=== PATIENT | male | born 1985 | race African-American/Black ===

== ENCOUNTER 2023-11-27 08:58 | Emergency (ER) | payer SELFPAY ==
[~2023-11-27] VITALS: Ht 185.4 cm; Wt 88.5 kg
[2023-11-27 09:16] VITALS: O2SAT 100
[2023-11-27 10:25] LABS: BASOPHILS % 0.6 % (0.0-2.0); EOSINOPHILS % 1.4 % (0.0-5.0); HEMATOCRIT. 43.2 % (42.0-52.0); HEMOGLOBIN. 14.4 g/dL (14.0-18.0); LYMPHOCYTES % 37.3 % (20.0-50.0); MEAN CORPUSCULAR HEMOGLOBIN 28.7 pg (28.0-32.0); MEAN CORPUSCULAR HGB CONC 33.2 g/dL (31.0-37.0); MEAN CORPUSCULAR VOLUME 86.5 fL (80.0-94.0); MEAN PLATELET VOLUME 8.2 fl (7.4-10.4); MONOCYTES % 9.7 % (2.0-8.0); PLATELET 237 x1000/uL (130-400); RED BLOOD CELL COUNT 4.99 mill/uL (4.7-6.1); RED CELL DISTRIBUTION WIDTH 15.2 % (11.6-14.6); WHITE BLOOD COUNT 7.7 x1000/uL (4.5-11.0)
[2023-11-27 10:30] LABS: CHLORIDE 108 mEq/L (98-107); SODIUM 141 mEq/L (136-145)
[2023-11-27 10:32] LABS: CALCIUM 9.2 mg/dL (8.7-10.4)
[2023-11-27 10:33] LABS: CARBON DIOXIDE 27 mEq/L (21-32)
[2023-11-27 10:36] LABS: CREATININE 1.3 mg/dL (0.6-1.3); GLUCOSE 90 mg/dL (70-105)
[2023-11-27 10:37] LABS: UREA NITROGEN BLOOD 15 mg/dL (9-23)
[2023-11-27 10:38] LABS: ALANINE AMINOTRANSFERASE 20 IU/L (10-49); ALBUMIN 4.6 g/dL (3.2-4.8); ASPARTATE AMINOTRANSFERASE 25 IU/L (<34)
[2023-11-27 10:39] LABS: BILIRUBIN TOTAL 0.5 mg/dL (0.1-1.0); PROTEIN TOTAL 7.8 g/dL (6.0-8.3)
[2023-11-27] MEDS ORDERED: IBUP-2030 MT (11:56)
[2023-11-27 12:14] VITALS: BP 146/91; PULSE 62; RESP 16; TEMP 98.2
== END 2023-11-27 12:17 | disposition home or self-care (01) ==
LOC: ER 08:58
DX: K40.90 Unilateral inguinal hernia, without obstruction or gangrene, not specified as recurrent (principal); M54.31 Sciatica, right side; Z98.890 Other specified postprocedural states
CPT/HCPCS: 36415; 80053; 85025; 99283